=== PATIENT | male | born 1980 | race Caucasian/White ===

== ENCOUNTER 2020-01-20 12:58 | Inpatient (IN) | payer OTHER ==
[~2020-01-20] VITALS: Ht 182.9 cm; Wt 104.5 kg
[2020-03-27] MEDS ORDERED: LIPITOR20 MG PO (14:40)
[2020-03-27] MEDS ORDERED: CYCLOBENZAPRINE10 MG PO (14:40)
[2020-03-27] MEDS ORDERED: MOBIC7.5 MG PO (14:40)
[2020-03-28] MEDS ORDERED: PRINIVIL10 MG PO (11:31)
[2020-03-28] MEDS ORDERED: GABAPENTIN300 MG PO (11:31)
[2020-03-28] MEDS ORDERED: ULTRAM50 MG PO (11:32)
[2020-03-28 12:19] LABS: BASOPHILS 0.3 % (0-2); EOSINOPHILS 1.8 % (0-7); HEMATOCRIT 44.9 % (42.0-54.0); HEMOGLOBIN 15.3 g/dL (13.5-17.5); IMMATURE GRANULOCYTES 0.3 % (0-5); LYMPHOCYTES 31.4 % (15-50); MCH 29.8 pg (26.0-34.0); MCHC 34.1 g/dL (31.0-37.0); MCV 87.5 fL (80.0-100.0); MEAN PLATELET VOLUME 8.8 fL (7.4-10.4); MONOCYTES 10.2 % (2-11); PLATELET COUNT 330 10x3/uL (130-400); RBC 5.13 10x6/uL (4.20-6.10); RDW 12.6 % (11.5-14.5); WBC 7.3 10x3/uL (4.8-10.8)
[2020-03-28 12:30] LABS: APTT 31.4 SECONDS (22.8-39.4); INR 0.97 (0.85-1.17); PROTIME 12.9 SECONDS (11.6-15.0)
[2020-03-28 12:33] LABS: CALCIUM 9.4 mg/dL (8.5-10.1); CARBON DIOXIDE 27.5 mmol/L (21.0-32.0); CREATININE - SERUM 1.3 mg/dL (0.6-1.3)
[2020-03-28 12:54] LABS: ANION GAP 13.5 mmol/L (8-16)
[2020-03-28 12:57] LABS: BILIRUBIN NEGATIVE (NEGATIVE); GLUCOSE NEGATIVE (NEGATIVE); KETONE NEGATIVE (NEGATIVE); NITRITE NEGATIVE (NEGATIVE); SPECIFIC GRAVITY 1.005 (1.005-1.020); UROBILINOGEN NORMAL (NORMAL)
[2020-04-02] VITALS (9 sets, daily range): BP systolic 93–146; BP diastolic 57–100; Ht 182.9 cm; Wt 104.5 kg
--- NOTE | 2020-04-02 09:34 | NUR ---
PREPPED LEFT LOWER EXTREMITY CIRCUMFERENCIALLY WITH ALCOHOL, HIBICLENS, AND CHLORAPREP.
--- NOTE | 2020-04-02 10:43 | NUR ---
1040 PATIENT AWAKE, LMA DISCONTINUED. MAINTAINING SELF PATENT AIRWAY
--- NOTE | 2020-04-02 11:30 | NUR ---
RECEIVED TO ROOM 2210 VIA BED FROM PACU. A/O X3. NO C/O AT THIS TIME. SCD'S AND TEDS PLACED AT THIS TIME. PATIENT TOLERATED WELL. SKIN IS INTACT WITHOUT REDNESS. DENIES NEEDS.
--- NOTE | 2020-04-02 12:28 | NUR ---
REQUESTED AND GIVEN ONE PERCOCET PO FOR C/O LEFT KNEE PAIN LEVEL 10. WILL MONITOR. LUNCH SERVED IN ROOM.
--- NOTE | 2020-04-02 13:30 | NUR ---
ATE MOST OF REGULAR LUNCH TRAY. REPORTS PAIN IMPROVED WITH USE OF PERCOCET. DENIES NEEDS.
--- NOTE | 2020-04-02 15:48 | NUR ---
VOIDED 450CC CLEAR YELLOW URINE WITHOUT DIFFICULTY. DENIES NEEDS.
--- NOTE | 2020-04-02 18:08 | NUR ---
ATE ALL OF SUPPER. PLACED ON CPM AT 1745. NO CHANGES NOTED. DENIES NEEDS.
--- NOTE | 2020-04-02 19:10 | NUR ---
PATIENT RESTING IN BED ON CPM WITH NO S/S OF DISTRESS. PATIENT DENIES NEEDS AT THIS TIME. VSS. BED IN LOWEST POSITION AND CALL LIGHT WITHIN REACH. ENCOURAGED THE PATIENT TO CALL IF HE HAS NEEDS. WILL CONTINUE TO MONITOR.
--- NOTE | 2020-04-02 20:45 | NUR ---
TOOK PATIENT OFF CPM WITH SHIRA LU
[2020-04-03 00:23] VITALS: BP 96/56
[2020-04-03 04:44] VITALS: BP 94/56
--- NOTE | 2020-04-03 05:20 | NUR ---
PLACED PATIENT ON CPM TO LEFT KNEE
[2020-04-03 06:51] LABS: HEMATOCRIT 33.3 % (42.0-54.0); HEMOGLOBIN 11.3 g/dL (13.5-17.5); MCH 29.9 pg (26.0-34.0); MCHC 33.9 g/dL (31.0-37.0); MCV 88.1 fL (80.0-100.0); RBC 3.78 10x6/uL (4.20-6.10); WBC 14.3 10x3/uL (4.8-10.8)
[2020-04-03 07:37] VITALS: BP 104/56
--- NOTE | 2020-04-03 08:41 | NUR ---
AWAKE AND ALERT. ORIENTED X3. ON CPM AT THIS TIME. REQUESTED AND GIVEN ONE PERCOCET PO FOR C/O LEFT KNEE PAIN LEVEL 10. WILL MONITOR. LUNGS ARE CLEAR BILATERALLY, NO COUGH NOTED. REPORTED USING IS INSTRUCTED. SKIN IS INTACT WITHOUT REDNESS EXCEPT INCISION TO LEFT KNEE WHICH HAS A DRY INTACT DRESSING IN PLACE. IV TO RIGHT FOREARM IS PATENT WITHOUT REDNESS AT INSERTION SITE. BREAKFAST SERVED IN ROOM. ATE ALL OF MEAL. DENIES NEEDS.
--- NOTE | 2020-04-03 10:11 | NUR ---
AMBULATED 150 FEET WITH PT USING RW. REQUESTED AND GIVEN 30MG TORADOL SLOW IVP FOR C/O LEFT KNEE PAIN LEVEL 10. WILL MONITOR. UP IN CHAIR AT BEDSIDE.
[2020-04-03 12:11] VITALS: BP 105/52
--- NOTE | 2020-04-03 12:30 | NUR ---
ATE MOST OF LUNCH. DENIES NEEDS.
[2020-04-03] MEDS ORDERED: PERCOCET 10-321 EAC1 PO ×2 (13:10→14:43)
[2020-04-03] MEDS ORDERED: ELIQUIS2.5 MG PO (13:10)
--- NOTE | 2020-04-03 13:12 | MORECARE ---
CASE MANAGEMENT DISCHARGE SUMMARY PATIENT: ILENE DOMINIQUE UNIT: [id number] ADM DATE: 04/02/20 AGE: 39 : 82 SEX: M ROOM/BED: D.1210 AUTHOR: VIVIEN QUEEN PHYSICIAN: REFERRING PHYSICIAN: ISABELA SRIVASTAVA MD DATE OF SERVICE: 04/03/20 Discharge Plan Patient Name: ILENE DOMINIQUE Facility: [facility]:[place] : 1980 Planned Disposition: Home Anticipated Discharge Date: 04/03/20 Discharge Date: Expected LOS: 1 Initial Reviewer: [email or web address] Initial Review Date: 04/02/2020 Generated: 04/03/20 2:12 pm DCPIA - Discharge Planning Initial Assessment Updated by [email or web address]: Rossy Clements on 04/03/20 1:10 pm * Is the patient Alert and Oriented? Yes * PCP Dr. Vira Mcdonnell * Pharmacy [address] * Preadmission Environment Home with Family * ADLs Independent * Equipment Rolling Walker Shower Chair * Other Equipment CPM * List name and contact numbers for known caregivers / representatives who currently or will assist patient after discharge: Alex García (brother) [phone] * Verbal permission to speak to the caregivers and representatives has been obtained from the patient. N/A * Community resources currently utilized Other * Please name any agencies selected above. [facility] [phone] Address: [address] [place] [address] * Additional services required to return to the preadmission environment? Yes * Can the patient safely return to the preadmission environment? Yes * Has this patient been hospitalized within the prior 30 days at any hospital? No Patient Name: ILENE DOMINIQUE Page 90225 at 1312 All edits/amendments must be made on the electronic document DICTATION DATE: 04/03/20 1312 WATER TENDER: KASSIDY 04/03/20 1312 RPT#: [id number] DC DATE: STATUS: ADM IN [facility] [address] [place] [address] END OF REPORT
--- NOTE | 2020-04-03 13:26 | MORECARE ---
CASE MANAGEMENT DISCHARGE SUMMARY PATIENT: ILENE DOMINIQUE UNIT: [id number] ADM DATE: 04/02/20 AGE: 39 : 82 SEX: M ROOM/BED: D.1210 AUTHOR: BERNICE,DOC PHYSICIAN: REFERRING PHYSICIAN: ISABELA SRIVASTAVA MD DATE OF SERVICE: 04/03/20 Discharge Plan Patient Name: ILENE DOMINIQUE Facility: [facility]:[place] : 1980 Planned Disposition: Home Anticipated Discharge Date: 04/03/20 Discharge Date: Expected LOS: 1 Initial Reviewer: [email or web address] Initial Review Date: 04/02/2020 Generated: 04/03/20 2:26 pm Comments DCP- Discharge Planning Updated by [email or web address]: Rossy Clements on 04/03/20 12:[address] DC needs: [facility] [phone]. CM met with patient to discuss initial discharge planning. Patient is in agreement to proceed with the assessment with present. Patient reports that he lives with family, independently. Patient is alert/oriented. Stairs/steps: PCP: Dr.Katherine Mcdonnell. Pharmacy: [facility]. Patient states they have been able to obtain all of their prescribed medications. HHS: No. DME: CPM, Walker, Shower chair. Emergency contact: Alex García (brother) [phone]. Patient is Independent with all ADL's, medication management POT PUNCHER. CM discussed the availability of HH, Rehab, DME services. Patient request [facility] [phone]. Patient denies the need for additional services at this time and feels safe returning to previous environment. Patient denies being hospitalized within the past 30 days. Patient denies the use of community resources POT PUNCHER. Transportation at time of discharge: Alex García (brother [phone]. CM left a VM for an appointment @[phone] X2. DCPIA - Discharge Planning Initial Assessment Updated by [email or web address]: Rossy Clements on 04/03/20 1:10 pm * Is the patient Alert and Oriented? Yes * PCP Dr. Vira Mcdonnell * Pharmacy [facility] [address] * Preadmission Environment Home with Family * ADLs Independent * Equipment Rolling Walker Shower Chair * Other Equipment CPM * List name and contact numbers for known caregivers / representatives who currently or will assist patient after discharge: Alex García (brother) [phone] * Verbal permission to speak to the caregivers and representatives has been obtained from the patient. N/A * Community resources currently utilized Other * Please name any agencies selected above. [facility] [phone] Address: [address] [place] [address], * Additional services required to return to the preadmission environment? Yes * Can the patient safely return to the preadmission environment? Yes * Has this patient been hospitalized within the prior 30 days at any hospital? No Last DP export: 04/03/20 12:12 pm Patient Name: ILENE DOMINIQUE Page 63982 at 1326 All edits/amendments must be made on the electronic document DICTATION DATE: 04/03/20 1326 VENDING MACHINE SERVICER: KASSIDY 04/03/20 1326 RPT#: [id number] DC DATE: STATUS: ADM IN [facility] [address] [place] [address] END OF REPORT
--- NOTE | 2020-04-03 13:51 | MORECARE ---
CASE MANAGEMENT DISCHARGE SUMMARY PATIENT: ILENE DOMINIQUE UNIT: [id number] ADM DATE: 04/02/20 AGE: 39 : 82 SEX: M ROOM/BED: D.1210 AUTHOR: BERNICE,DOC PHYSICIAN: REFERRING PHYSICIAN: ISABELA SRIVASTAVA MD DATE OF SERVICE: 04/03/20 Discharge Plan Patient Name: ILENE DOMINIQUE Facility: [facility]:[place] : 1980 Planned Disposition: Home Anticipated Discharge Date: 04/03/20 Discharge Date: Expected LOS: 1 Initial Reviewer: [email or web address] Initial Review Date: 04/02/2020 Generated: 04/03/20 2:50 pm Comments DCP- Discharge Planning Updated by [email or web address]: Rossy Clements on 04/03/20 12:[address] DC needs: [facility] [phone]. CM met with patient to discuss initial discharge planning. Patient is in agreement to proceed with the assessment with present. Patient reports that he lives with family, independently. Patient is alert/oriented. Stairs/steps: PCP: Dr.Katherine Mcdonnell. Pharmacy: [facility]. Patient states they have been able to obtain all of their prescribed medications. HHS: No. DME: CPM, Walker, Shower chair. Emergency contact: Alex García (brother) [phone]. Patient is Independent with all ADL's, medication management WAITER/WAITRESS THIRD CLASS. CM discussed the availability of HH, Rehab, DME services. Patient request [facility] [phone]. Patient denies the need for additional services at this time and feels safe returning to previous environment. Patient denies being hospitalized within the past 30 days. Patient denies the use of community resources WAITER/WAITRESS THIRD CLASS. Transportation at time of discharge: Alex García (brother [phone]. CM left a VM for an appointment @[phone] X2. DCPIA - Discharge Planning Initial Assessment Updated by [email or web address]: Rossy Clements on 04/03/20 1:10 pm * Is the patient Alert and Oriented? Yes * PCP Dr. Vira Mcdonnell * Pharmacy [facility] [address] * Preadmission Environment Home with Family * ADLs Independent * Equipment Rolling Walker Shower Chair * Other Equipment CPM * List name and contact numbers for known caregivers / representatives who currently or will assist patient after discharge: Alex García (brother) [phone] * Verbal permission to speak to the caregivers and representatives has been obtained from the patient. N/A * Community resources currently utilized Other * Please name any agencies selected above. [facility] [phone] Address: [address] [place] [address] * Additional services required to return to the preadmission environment? Yes * Can the patient safely return to the preadmission environment? Yes * Has this patient been hospitalized within the prior 30 days at any hospital? No External Providers External Provider: [facility] Next Contact Date: Service Request Date: Service Type: Resolution: Reviewer: Comments: Last DP export: 04/03/20 12:26 pm Patient Name: ILENE DOMINIQUE Page 12660 at 1351 All edits/amendments must be made on the electronic document DICTATION DATE: 04/03/20 1350 MARINE OILER: KASSIDY 04/03/20 1350 RPT#: [id number] DC DATE: STATUS: ADM IN [facility] [address] [place] [address] END OF REPORT
--- NOTE | 2020-04-03 13:58 | MORECARE ---
CASE MANAGEMENT DISCHARGE SUMMARY PATIENT: ILENE DOMINIQUE UNIT: [id number] ADM DATE: 04/02/20 AGE: 39 : 82 SEX: M ROOM/BED: D.1210 AUTHOR: BERNICE,DOC PHYSICIAN: REFERRING PHYSICIAN: ISABELA SRIVASTAVA MD DATE OF SERVICE: 04/03/20 Discharge Plan Patient Name: ILENE DOMINIQUE Facility: [facility]:[place] : 1980 Planned Disposition: Home Anticipated Discharge Date: 04/03/20 Discharge Date: Expected LOS: 1 Initial Reviewer: [email or web address] Initial Review Date: 04/02/2020 Generated: 04/03/20 2:58 pm Comments DCP- Discharge Planning Updated by [email or web address]: Rossy Clements on 04/03/20 12:[address] DC needs: [facility] [phone]. Required order, face sheet, surgical report faxed to [facility]. CM met with patient to discuss initial discharge planning. Patient is in agreement to proceed with the assessment with present. Patient reports that he lives with family, independently. Patient is alert/oriented. Stairs/steps: PCP: Dr.Katherine Mcdonnell. Pharmacy: [facility]. Patient states they have been able to obtain all of their prescribed medications. HHS: No. DME: CPM, Walker, Shower chair. Emergency contact: Alex García (brother) [phone]. Patient is Independent with all ADL's, medication management SPACE SCIENCES DIRECTOR. CM discussed the availability of HH, Rehab, DME services. Patient request [facility] [phone]. Patient denies the need for additional services at this time and feels safe returning to previous environment. Patient denies being hospitalized within the past 30 days. Patient denies the use of community resources SPACE SCIENCES DIRECTOR. Transportation at time of discharge: Alex García (brother [phone]. CM left a VM for an appointment @[phone] X2. DCPIA - Discharge Planning Initial Assessment Updated by [email or web address]: Rossy Clements on 04/03/20 1:10 pm * Is the patient Alert and Oriented? Yes * PCP Dr. Vira Mcdonnell * Pharmacy [facility] [address] * Preadmission Environment Home with Family * ADLs Independent * Equipment Rolling Walker Shower Chair * Other Equipment CPM * List name and contact numbers for known caregivers / representatives who currently or will assist patient after discharge: Alex García (brother) [phone] * Verbal permission to speak to the caregivers and representatives has been obtained from the patient. N/A * Community resources currently utilized Other * Please name any agencies selected above. [facility] [phone] Address: [address] [place] [address], * Additional services required to return to the preadmission environment? Yes * Can the patient safely return to the preadmission environment? Yes * Has this patient been hospitalized within the prior 30 days at any hospital? No Last DP export: 04/03/20 12:51 pm Patient Name: ILENE DOMINIQUE Page 54862 at 1358 All edits/amendments must be made on the electronic document DICTATION DATE: 04/03/20 1358 HISTOLOGY TECHNOLOGIST: KASSIDY 04/03/20 1358 RPT#: [id number] DC DATE: STATUS: ADM IN [facility] [address] [place] [address] END OF REPORT
--- NOTE | 2020-04-03 14:30 | NUR ---
DISCHARGED TO HOME AMBULATORY WITH FAMILY. DISCHARGE INSTRUCTIONS GIVEN BOTH VERBALLY AND WRITTEN. ALL QUESTIONS ANSWERED. PATIENT VERBALIZED UNDERSTANDING OF SAME. JORDAN WRAP AND CAST PADDING REMOVED FROM LEFT KNEE. DRESSING TO SAME IS DRY AND INTACT. PATIENT GIVEN EXTRA DRESSINGS TO USE AT HOME AND INSTRUCTED TO CHANGE DRESSING IN SEVEN DAYS. NEEDED PRESCRIPTIONS ESCRIBED TO PHARMACY OF CHOICE. SL TO RIGHT FOREAM D/C WITH CATHETER INTACT. ALL BELONGINGS WITH PATIENT.
--- NOTE | 2020-04-03 15:58 | MORECARE ---
CASE MANAGEMENT DISCHARGE SUMMARY PATIENT: ILENE DOMINIQUE UNIT: [id number] ADM DATE: 04/02/20 AGE: 39 : 82 SEX: M ROOM/BED: D.1210 AUTHOR: BERNICE,DOC PHYSICIAN: REFERRING PHYSICIAN: ISABELA SRIVASTAVA MD DATE OF SERVICE: 04/03/20 Discharge Plan Patient Name: ILENE DOMINIQUE Facility: [facility]:[place] : 1980 Planned Disposition: Home Anticipated Discharge Date: 04/03/20 Discharge Date: 04/03/2020 Expected LOS: 1 Initial Reviewer: [email or web address] Initial Review Date: 04/02/2020 Generated: 04/03/20 4:57 pm Comments DCP- Discharge Planning Updated by [email or web address]: Rossy Clements on 04/03/20 12:[address] DC needs: [facility] [phone]. Required order, face sheet, surgical report faxed to [facility]. CM met with patient to discuss initial discharge planning. Patient is in agreement to proceed with the assessment with present. Patient reports that he lives with family, independently. Patient is alert/oriented. Stairs/steps: PCP: Dr.Katherine Mcdonnell. Pharmacy: [facility]. Patient states they have been able to obtain all of their prescribed medications. HHS: No. DME: CPM, Walker, Shower chair. Emergency contact: Alex García (brother) [phone]. Patient is Independent with all ADL's, medication management TECHNICIAN SEMICONDUCTOR DEVELOPMENT. CM discussed the availability of HH, Rehab, DME services. Patient request [facility] [phone]. Patient denies the need for additional services at this time and feels safe returning to previous environment. Patient denies being hospitalized within the past 30 days. Patient denies the use of community resources TECHNICIAN SEMICONDUCTOR DEVELOPMENT. Transportation at time of discharge: Alex García (brother [phone]. CM left a for an appointment @[phone] X2. DCPIA - Discharge Planning Initial Assessment Updated by [email or web address]: Rossy Clements on 04/03/20 1:10 pm * Is the patient Alert and Oriented? Yes * PCP Dr. Vira Mcdonnell * Pharmacy [facility] [address] * Preadmission Environment Home with Family * ADLs Independent * Equipment Rolling Walker Shower Chair * Other Equipment CPM * List name and contact numbers for known caregivers / representatives who currently or will assist patient after discharge: Alex García (brother) [phone] * Verbal permission to speak to the caregivers and representatives has been obtained from the patient. N/A * Community resources currently utilized Other * Please name any agencies selected above. [facility] [phone] Address: [address] [place] [address], * Additional services required to return to the preadmission environment? Yes * Can the patient safely return to the preadmission environment? Yes * Has this patient been hospitalized within the prior 30 days at any hospital? No Last DP export: 04/03/20 12:58 pm Patient Name: ILENE DOMINIQUE Page 85787 at 1558 All edits/amendments must be made on the electronic document DICTATION DATE: 04/03/208 DRY CLEANER HELPER: KASSIDY 04/03/20 1558 RPT#: [id number] DC DATE:04/03/20 STATUS: DIS IN [place] [address] [place] [address] END OF REPORT
--- NOTE | 2020-04-04 15:49 | MORECARE ---
CASE MANAGEMENT DISCHARGE SUMMARY PATIENT: ILENE DOMINIQUE UNIT: [id number] ADM DATE: 04/02/20 AGE: 39 : 82 SEX: M ROOM/BED: D.1210 AUTHOR: BERNICE,DOC PHYSICIAN: REFERRING PHYSICIAN: ISABELA SRIVASTAVA MD DATE OF SERVICE: 04/04/20 Discharge Plan Patient Name: ILENE DOMINIQUE Facility: [facility]:[place] : 1980 Planned Disposition: Home Anticipated Discharge Date: 04/03/20 Discharge Date: 04/03/2020 Expected LOS: 1 Initial Reviewer: [email or web address] Initial Review Date: 04/02/2020 Generated: 04/04/20 4:49 pm Comments DCP- Discharge Planning Updated by [email or web address]: Rossy Clements on 04/04/20 2:[address] CM contacted [facility] to verify that the fax for OP Therapy was received 04/03 and appointment was made. Patient has been contacted and has an appointment for 04/04. DCP- Discharge Planning Updated by [email or web address]: Rossy Clements on 04/03/20 12:[address] DC needs: [facility] [phone]. Required order, face sheet, surgical report faxed to [facility]. CM met with patient to discuss initial discharge planning. Patient is in agreement to proceed with the assessment with present. Patient reports that he lives with family, independently. Patient is alert/oriented. Stairs/steps: PCP: Dr.Katherine Mcdonnell. Pharmacy: [facility]. Patient states they have been able to obtain all of their prescribed medications. HHS: No. DME: CPM, Walker, Shower chair. Emergency contact: Alex García (brother) [phone]. Patient is Independent with all ADL's, medication management PET HANDLER. CM discussed the availability of HH, Rehab, DME services. Patient request [facility] [phone]. Patient denies the need for additional services at this time and feels safe returning to previous environment. Patient denies being hospitalized within the past 30 days. Patient denies the use of community resources PET HANDLER. Transportation at time of discharge: Alex García (brother [phone]. CM left a VM for an appointment @[phone] X2. DCPIA - Discharge Planning Initial Assessment Updated by [email or web address]: Rossy Clements on 04/03/20 1:10 pm * Is the patient Alert and Oriented? Yes * PCP Dr. Vira Mcdonnell * Pharmacy [facility] [address] * Preadmission Environment Home with Family * ADLs Independent * Equipment Rolling Walker Shower Chair * Other Equipment CPM * List name and contact numbers for known caregivers / representatives who currently or will assist patient after discharge: Alex García (brother) [phone] * Verbal permission to speak to the caregivers and representatives has been obtained from the patient. N/A * Community resources currently utilized Other * Please name any agencies selected above. [facility] [phone] Address: [address] [place] [address] * Additional services required to return to the preadmission environment? Yes * Can the patient safely return to the preadmission environment? Yes * Has this patient been hospitalized within the prior 30 days at any hospital? No Last DP export: 04/03/20 2:58 pm Patient Name: ILENE DOMINIQUE Page 73799 at 1549 All edits/amendments must be made on the electronic document DICTATION DATE: 04/04/20 1549 VISUAL ARTS TEACHER: KASSIDY 04/04/20 1549 RPT#: [id number] DC DATE:04/03/20 STATUS: DIS IN [place] [address] [place] [address] END OF REPORT
== END 2020-04-03 14:30 | disposition home or self-care (01) | DRG 470 ==
LOC: D.SDCHOLD 02-22 10:00 → D.M3 04-02 11:04
PROVIDERS: ADMIT Orthopaedic Surgery; ATTEND Orthopaedic Surgery
PROC: 0SRD0JZ Replacement of Left Knee Joint with Synthetic Substitute, Open Approach (ICD-10-PCS; principal; 2020-04-02 08:30)
DX: M17.12 Unilateral primary osteoarthritis, left knee (principal); Z87.891 Personal history of nicotine dependence